=== PATIENT | female | born 1940 | race Hispanic/Latino ===

== ENCOUNTER 2016-03-24 06:08 | Inpatient (IN) | payer MEDICARE ==
--- NOTE | 2016-03-22 10:44 | Anesthesia Consultation ---
Addendum entered and electronically signed by VINCE GONZALEZ PA 03/22/16 10:46: Has surgical clearance. Original Note: Anesthesia Consult and Med Hx Date of service: 03/22/16 - Airway Anesthetic Teeth Evaluation: Edentulous ROM Head & Neck: Adequate Mental/Hyoid Distance: Adequate Mallampati Class: Class III Intubation Access Assessment: Probably Good - Pulmonary Exam CTA: Yes - Cardiac Exam Cardiac Exam: RRR - Pre-Operative Health Status ASA Pre-Surgery Classification: ASA3 Proposed Anesthetic Plan: General - Pulmonary Hx Smoking: Yes (CIGARETTES 1 PPD X 28 YRS, QUIT IN 1981) Hx Asthma: No COPD: No Hx Pneumonia: No Hx Sleep Apnea: No - Cardiovascular System Hx Hypertension: Yes (FOR 20+ YRS) Hx Coronary Artery Disease: Yes Hx Cardia Arrhythmia: Yes (sick sinus syndrome) Hx Pacemaker: Yes (PLACED IN 2003 AND 2013) Hx Heart Murmur: Yes Hx Peripheral Vascular Disease: Yes (s/p stents IN GROIN; RT ARM AND KIDNEY) - Central Nervous System CVA: Yes (TIAs) Hx Psychiatric Problems: No - Gastrointestinal Hx Ulcer: Yes (2014) Hx Gastroesophageal Reflux Disease: Yes (controlled with meds) - Endocrine Hx Renal Disease: Yes (Possible Renal artery stenosis, but does have PVD with prior stents) Hx Non-Insulin Dependent Diabetes: No Hx Thyroid Disease: Yes (no longer on replacement) - Hematic Hx Anemia: Yes - Other Systems Hx Alcohol Use: Yes (2 beers/day) Hx Cancer: No - Additional Comments Anesthesia Medical History Comments: No problems with previous anesthesias.
[2016-03-22 11:07] LABS: Basophils % (Auto) 0.3 % (0.0-1.8); Eosinophils % (Auto) 0.7 % (0.0-4.3); Hematocrit 32.3 % (30.3-42.9); Mean Corpuscular HGB Conc 34 % (30-34); Mean Corpuscular Hemoglobin 32 pg (28-32); Mean Corpuscular Volume 92 fl (79-97); Platelet Count 275 K/mm3 (140-440); Red Blood Count 3.49 M/mm3 (3.65-5.03); Red Cell Distribution Width 12.8 % (13.2-15.2); White Blood Count 4.5 K/mm3 (4.5-11.0)
[2016-03-22 11:17] LABS: INR 1.1 (0.87-1.13)
[2016-03-22 11:19] LABS: BUN/Creatinine Ratio 14.28; Calcium 8.7 mg/dL (8.4-10.2); Chloride 96.1 mmol/L (98-107); Potassium 4.9 mmol/L (3.6-5.0)
[~2016-03-24 06:08] MED LIST: NACL 0.9% 1000 ML 1,000 ML IV SCH; PEPCID PO NR; VANCOMYCIN/NS 1 GM/250 ML 250 ML IV NR
[2016-03-24] MEDS ORDERED: NACL BACTERIOSTATIC INFILTRATI ONE (06:39)
[2016-03-24] MEDS ORDERED: DIPRIVAN 10 MG/ML IV ONE (06:40)
[2016-03-24] MEDS ORDERED: DILAUDID ONE (06:42)
[2016-03-24] MEDS ORDERED: AMIDATE IV ONE (06:42)
[2016-03-24] MEDS ORDERED: NACL P/F VIAL (10 ML) 10 ML ONE (06:44)
[2016-03-24] MEDS ORDERED: ePHEDrine SULFATE ONE (06:44)
[2016-03-24] MEDS ORDERED: NACL 0.9% 1000 ML 1,000 ML ONE ×4 (06:46→16:09)
[2016-03-24] MEDS ORDERED: NEO SYNEPHRINE ONE ×2 (06:46→14:44)
[2016-03-24] MEDS ORDERED: NACL 0.9% 100 ML ONE ×2 (06:47→14:44)
[2016-03-24] MEDS ORDERED: QUELICIN ONE (06:47)
[2016-03-24] MEDS ORDERED: ZEMURON IV ONE ×2 (06:47→16:09)
[2016-03-24] MEDS ORDERED: XYLOCAINE MPF 2% ONE (06:58)
[2016-03-24] MEDS ORDERED: PEPCID PO NR (07:00)
--- NOTE | 2016-03-24 07:10 | Anesthesia Day of Surgery ---
Anesthesia Day of Surgery - Day of Surgery Patient Examined: Yes Patient H&P Reviewed: Yes Patient is NPO: Yes Cardiac Clearance: Yes
[2016-03-24] MEDS: VERSED IV NR ×2 (07:16→07:35)
[2016-03-24] MEDS ORDERED: NACL 0.9% 500 ML 500 ML IV NR (08:00)
[2016-03-24] MEDS ORDERED: DECADRON ONE (09:01)
[2016-03-24] MEDS ORDERED: MARCAINE-EPI 0.5%-1:200,000 INFILTRATI ONE (10:05)
[2016-03-24] MEDS ORDERED: NACL 0.9% IR ONE (10:05)
[2016-03-24] MEDS ORDERED: HEPARIN 10,000 UNITS/10 ML 4,000 UNIT in NACL 0.9% 1000 ML 1,000 ML IR ONE (10:06)
[2016-03-24] MEDS ORDERED: HEPARIN 10,000 UNITS/10 ML 2,000 UNIT in NACL 0.9% 500 ML 500 ML IR ONE (13:47)
[2016-03-24 14:34] LABS: Hematocrit 22.5 % (30.3-42.9); Hemoglobin 7.6 gm/dl (10.1-14.3); Mean Corpuscular HGB Conc 34 % (30-34); Mean Corpuscular Hemoglobin 32 pg (28-32); Mean Corpuscular Volume 94 fl (79-97); Platelet Count 268 K/mm3 (140-440); Red Blood Count 2.39 M/mm3 (3.65-5.03); Red Cell Distribution Width 12.8 % (13.2-15.2); White Blood Count 9.9 K/mm3 (4.5-11.0)
[2016-03-24] MEDS ORDERED: ZOFRAN IV PRN ×3 (14:53→17:16)
[2016-03-24] MEDS ORDERED: VANCOMYCIN/NS 500 MG/100 ML 100 ML IV SCH (15:00)
--- NOTE | 2016-03-24 16:03 | Admit Criteria Form ---
Admission Criteria Documentation: AMBULATORY SURGERY EXCEPTION CRITERIA Ambulatory Surgery Exception Criteria ( Place 'X' for any and all applicable criteria): Surgery or procedure performed on ambulatory basis may require inpatient stay for[A] ANY ONE of the following(1)(2)(3)(4)(5)(6)(7)(8)(9): [X] I. A preoperative situation, condition, or finding that warrants inpatient stay as indicated by ANY ONE of the following: [X] a) Inpatient care needed because of severity of a disease or condition rather than the surgery (eg, severe cardiac or respiratory disease, severe infection) (15) (16 ) (17) (18) [] b) Emergent procedure (eg, angioplasty for acute ischemia)(19) [] c) Complex surgical approach or situation as indicated by ANY ONE of the following(3): [] i) Open approach needed instead of usual endoscopic, transcatheter, or other less invasive procedure [] ii) Difficult approach because of previous operation [] iii) Airway monitoring required after open neck procedures(20)(21) [] iv) Large mass requiring unusually extensive dissection [] v) Additional complicating feature requiring inpatient care (eg, drain management)(22(23): [X] d) Major surgery in a pt with high anesthetic risk as indicated by ANY ONE of the following (2)(3)(5)(7)(8): [X] i) ASA risk class III or higher (severe systemic disease impairing function) [D] [] ii) Advanced age (eg, older than 85 years)(14)(24) [] iii) Symptomatic heart failure(25) [] iv) Symptomatic asthma or COPD(8)(21) [] v) Morbid obesity with hemodynamic or respiratory problems(20)( 21)(26)(27) [] vi) Obstructive sleep apnea(20)(21) [] vii) Former premature infants who are younger than 60 weeks [] viii) High risk for severe postoperative abnormalities (eg, severe postoperative hypocalcemia after parathyroidectomy for severe hyperparathyroidism)(27)( 28) [] ix) Unstable angina(25) [] e) Drug-related risk requiring inpatient stay as indicated by ANY ONE of the following(5)(10)(14)(32)(33) [] i) Procedure requires discontinuing drugs or other therapy (eg , antiarrhythmic medication, antiseizure medication), which necessitates inpatient observation or treatment.(18)(31) [] ii) Major surgery and high risk drug use as indicated by ANY ONE of the following: [] 1) Active abuse of cocaine or similar drug [] 2) Monoamine oxidase inhibitor use [] 3) Other drug identified as posing risk [] f) Inadequate outpatient care situation as indicated by ANY ONE of the following(5)(10)(14)(32)(33) [] i) Patient lives remote from medical facility and procedure has urgent complication potential, and temporary nearby residence cannot be arranged [] ii) Patient will have postprocedure incapacitation and inadequate assistance at home, or alternative level of care cannot be arranged. [] iii) Patient will have long general anesthesia or procedure side effect resolution time, and competent person to stay with patient on first postoperative night at home or alternative level of care cannot be arranged. []iv) Other inadequate outpatient situation that cannot be handled by other means [] II. A perioperative event, condition, or finding that warrants inpatient stay as indicated by ANY ONE of the following (1)(2)(3): [] a) Inadequate physiologic recovery: cardiovascular, respiratory, or hemodynamic status not normal or near preoperative baseline(18) [] b) Hemodynamic instability [] c) Patient not alert with near normal or baseline mental status [] d) Temperature not normal or as expected and not appropriate for outpatient treatment of condition [] e) Ambulatory or appropriate activity level status not yet achieved post procedure [E](34)(35)(36) [] f) Operative site not appropriate (eg, unexpected or excessive drainage or bleeding) [] g) Postoperative effects not resolved or adequately managed (eg, significant pain or vomiting not appropriate for outpatient or next level of care)(10)(12) [] h) Complicating features requiring inpatient care as indicated by ANY ONE of the following(37): [] i) Severe complications of procedure (eg, bowel injury, airway compromise, vascular injury,severe hemorrhage) [] ii) Extensive (eg, dissection far beyond usual scope of procedure ) or prolonged (eg, 120 minutes beyond usual) surgery needed requiring inpatient postoperative care [] iii) Conversion to an open or complex procedure that requires inpatient care (eg, open vs laparoscopic cholecystectomy, abdominal vs vaginal hysterectomy)(38) [] iv) Comorbid condition or test result identified during or post procedure that requires inpatient care (7) [] v) Malignant hyperthermia(30) [] vi) Other complicating feature requiring inpatient care(22)(23) Inpatient stay may be needed until ALL of the following are present (1)(2)(3)(4) (5)(6)(10)(14)(33)(40): []a) Physiologic recovery: cardiovascular, respiratory, and hemodynamic status normal or near preoperative baseline []b) Hemodynamic stability []c) Patient alert, with near normal or baseline mental status []d) Temperature appropriate: patient afebrile or temperature appropriate for outpt treatment of condition []e) Activity level appropriate: ambulatory or appropriate activity level post procedure []f) Operative site appropriate as indicated by ALL of the following: []i) Site dry or with expected drainage []ii) Any blood noted is as expected for procedure. []g) Postoperative effects resolved or managed as indicated by ALL of the following: []i) Pain management appropriate for outpatient (or next level of) care(10) []ii) Minimal nausea and vomiting: if present, successfully treated with oral medication(12) []iii) Headache, dizziness, or drowsiness (if present) are mild. []h) Voiding status acceptable as indicated by ANY ONE of the following: []i) Voiding spontaneously []ii) No voiding but instructions given for follow-up in 6 to 8 hours []iii) Urinary catheter in place, and instructions given for follow-up []i) Complicating features requiring inpatient care manageable at a lower level of care(37) []j) Comorbid conditions manageable at a lower level of care(37) The original [facility] content created by [employer] has been revised. The portions of the content which have been revised are identified through the use of italic text or in bold, and [facility] has neither reviewed nor approved the modified material. All other unmodified content is copyright [facility]. Please see references footnoted in the original [employer] [facility] edition 2016 Admission Criteria Met: Yes
[2016-03-24] MEDS ORDERED: HEPARIN 10,000 UNITS/10 ML ONE (16:10)
[2016-03-24] MEDS ORDERED: ROBINUL ONE (16:16)
[2016-03-24] MEDS ORDERED: BLOXIVERZ ONE (16:16)
[2016-03-24] MEDS ORDERED: ZOFRAN ONE (16:16)
--- NOTE | 2016-03-24 16:39 | Operative Report ---
Operative Report Operative Report: Date of operations: 03/24/2016 Pre-operative diagnosis: Peripheral vascular disease with ulceration and rest pain Post-operative diagnosis: The same Procedure name(s): 1. Thromboendarterectomy of the right limb of aortobifemoral bypass graft. 2. Right common femoral artery endarterectomy with a bovine pericardial patch angioplasty. 3. Right common femoral to above-knee popliteal artery bypass with reverse greater saphenous vein. 4. Completion angiogram. 5. Balloon angioplasty of the right popliteal artery using a 3 x 40 Nanocross balloon followed by 4 x 100 drug coated Lutonics balloon Surgeon: Travis Ulrich MD, RPVI Gold Layer: Deirdre Plaza DO, RUI Ramirez Anesthesia: Gen. Findings #1 significant amount of scarring in the right groin due to previously done Aortobifemoral bypass. Difficulty in dissecting the right limb of the aortobifemoral bypass and right common femoral artery. #2 heavily calcified high-grade stenosis of the right limb of aortobifemoral bypass and right common femoral artery. #3 no evidence of technical problems on the completion angiogram. #4 no evidence of anastomotic stenosis on completion angiogram with brisk flow through the entire vein graft without any technical problems. #5 high-grade mid popliteal artery stenosis not previously appreciated on preoperative angiogram. 6# complete resolution of the stenosis after balloon angioplasty. 7#palpable pulse in the popliteal artery distal to the anastomosis. Specimens: None EBL: 600 mL IV fluids: 3000 mL, 2 units of packed red blood cells Urine output: 150 mL Disposition: The recovery Dictations: Severe peripheral vascular disease with rest pain and tissue loss. Procedure: Patient was brought to the operating room and laid on the operating room table in supine position. After general endotracheal anesthesia was achieved patient was prepped and draped in usual sterile fashion. The longitudinal incision in the right groin was made using #15 blade. The subcutaneous tissue was divided with Bovie electrocautery. Large amount of scar tissue was noted in the right groin due to previous aortobifem bypass. The right limb of aortobifemoral bypass graft was carefully dissected free using a combination of Bovie electrocautery and 15 blade it was encircled with a vessel loop proximally. In the distal portion of the bypass the pulse was barely palpable. The inguinal ligament and was divided and dissection continued up the bypass limb into the retroperitoneal space until a good pulse was felt. The graft was found to be stuck to the external iliac vein and the dissection was only limited to the portion of the graft that needed to be clamped. At that level it was soft. The gastelum of the graft was also carefully dissected onto the superficial femoral artery. The profunda was identified and carefully dissected and encircled with a vessel loop. The superficial femoral artery was also encircled with a vessel loop. The incision was continued down to the thigh and the proximal greater saphenous vein was dissected free to the length of the incision. All the branches were ligated using 3-0 silk ties. The dissection continued down the leg using skip incisions to just below-knee. Once we decided that we had enough of the vein it was disconnected distally below-knee and dilated using a heparinized saline. The distal vein was tied off using 3-0 silk tie. It was disconnected at the saphenofemoral junction and the saphenofemoral junction was oversewn using 5-0 Prolene stitch. That attention was turned to the popliteal artery..The right leg was bent at the knee and externally rotated. The incision above the knee from the vein harvest was used to gain access into the popliteal space. The incision was deepened with Bovie electrocautery. The fascia was divided with Bovie electrocautery and the sartorius muscle was retracted posteriorly and the popliteal space was entered. The the popliteal artery was carefully dissected from the top. Once adequate length of the artery was exposed it was encircled with vessel loops proximally and distally. The vein was prepared. It was dilated using heparinized saline and it appeared to dilate well. The tunnel was then created using a tunneler subcutaneously in the thigh. The vein was positioned in the tunnel in the reverse fashion and 5000 units of intravenous heparin were given. The right limb of aortobifemoral bypass graft was clamped using a vascular clamp care was taken to avoid the external iliac vein. The rest of the vessels were controlled using vessel loops. 11 blade was used to create an opening in the gastelum of the graft that was extended up to the soft spot in the limb and down to superficial femoral artery using Pott scissors. The clamp was released but the inflow was very sluggish. #6 Petr balloon was used to perform an embolectomy and moderate amount of clot came out of the limb of the aortobifemoral bypass resulting in excellent inflow. The distal portion of the right limb and the common femoral artery were heavily calcified. This calcium was removed using a [place] elevator. The opening in the graft and the common femoral artery was closed using bovine pericardial patch and 5-0 Prolene running suture. Prior to completion of the suture back bleeding maneuvers were performed and were adequate. The inflow remained in excellent shape. Clamps and vessel loops were released. The distal anastomosis was created then by making an arteriotomy in the popliteal artery after vessel was occluded using vessel loops. The end of the vein was spatulated using Gudino scissors and then anastomosis was created using 6-0 Prolene running suture. Prior to completion of the anastomosis the vessel loops were released and good back bleeding was seen. It was irrigated with heparinized saline and anastomosis was completed. The leg was straightened to make sure that we had enough vein. The arteriotomy on the bovine pericardial patch was made after the vascular clamps were applied using #11 blade and Gudino scissors. The vein was spatulated. The anastomosis was created using the 6-0 Prolene running suture. Prior to completion of the anastomosis back bleeding maneuvers were performed and were good. The anastomosis was completed. The 22 gauge angiocatheter was inserted into the vein bypass and the completion angiogram was performed. There were no anastomotic issues. However, a high-grade stenosis was seen in the popliteal artery that was not apparent in the previous preoperative angiogram most likely due to poor inflow. The micropuncture wire was advanced through the Angiocath and exchanged to a micropuncture sheath. J-tip wire was used to exchange the micropuncture sheath to a 6 Hebrew short sheath. The 0.018 V 18 wire was used to cross the anastomosis and the lesion. It was predilated using a 3 x 40 Nanocross balloon. The follow up angiogram revealed increase in the lumen of the popliteal artery however there was nonflow limiting dissection. The 4 x 100 drug-coated Lutonics balloon was then advanced into the popliteal artery and inflated for 3 minutes. Post-balloon angioplasty there was no residual dissection and excellent brisk flow down the popliteal artery and two-vessel runoff anterior tibial and peroneal arteries. Patient developed palpable pulse in the popliteal artery distal to the anastomosis. There was strong triphasic Doppler signal distal to the anastomosis that would go away when the graft was pinched. The wounds were inspected for bleeding and hemostasis was adequate. The inguinal ligament was reapproximated using 2-0 Vicryl running stitch . All wounds were closed using 2-0 and 3-0 Vicryl and elma in the skin. Patient tolerated procedure well was transferred to the recovery room. At the end of the case all instrument sponge and needle counts were correct.
[2016-03-24] MEDS ORDERED: NON-FORMULARY (Ranitidine Hcl [Zantac 300 Mg Tab] 300 MG) PO PRN (16:44)
[2016-03-24] MEDS ORDERED: MORPHINE IV PRN ×2 (16:50)
[2016-03-24] MEDS ORDERED: NARCAN 0.4 MG/1 ML IV PRN (16:50)
[2016-03-24] MEDS ORDERED: NORCO 5/325 PO PRN (16:50)
--- NOTE | 2016-03-24 17:36 | Consultation ---
History of Present Illness Consult date: 03/24/16 Requesting physician: LETI HORNE History of present illness: PULMONARY/CCM CONSULT NOTE (Full dictation #) Please see dictated notes for full details Medications and Allergies Allergies Allergy/AdvReac Type Severity Reaction Status Date / Time erythromycin base Allergy Mild Itching Verified 11/25/14 16:05 [Erythromycin Base] Penicillins Allergy Mild Unknown Verified 11/25/14 16:05 amoxicillin Allergy Unknown Verified 11/25/14 16:05 duloxetine Allergy Swelling Verified 03/21/16 15:52 hydralazine Allergy Swelling Verified 03/21/16 15:52 nifedipine Allergy Swelling Verified 03/21/16 15:52 [From Nifedical XL] sucralfate Allergy Swelling Verified 03/21/16 15:52 morphine AdvReac Intermediate Vomiting Verified 11/25/14 16:05 Home Medications Medication Instructions Recorded Confirmed Last Taken Type Ranolazine ER [Ranexa ER] 500 mg PO BID 01/30/13 03/21/16 03/23/16 History cloNIDine [Catapres] 0.2 mg PO BID 05/06/14 03/21/16 03/24/16 05:15 History Rosuvastatin Calcium [Crestor] 10 mg PO QHS 08/25/14 03/21/16 03/23/16 History Clopidogrel [Plavix] 75 mg PO QDAY #30 tablet 09/01/14 03/21/16 03/15/16 Rx Amlodipine-Benazepril 5-20 mg 1 cap PO DAILY 11/25/14 03/21/16 03/24/16 05:15 History Aspirin BABY CHEW TAB 1 tab PO DAILY 11/25/14 03/21/16 03/23/16 History Dexilant 60 mg PO DAILY 11/25/14 03/21/16 03/24/16 05:15 History Geritol Complete Tablet 2 tab PO DAILY 11/25/14 03/21/16 03/23/16 History Nitroglycerin 0.4 mg SL PRN PRN 11/25/14 03/21/16 Unknown History Furosemide [Lasix] 20 mg PO QDAY 03/21/16 03/21/16 03/23/16 History Ranitidine HCl [Zantac 300 MG TAB] 300 mg PO QDAY PRN 03/21/16 03/21/16 05:15 History Active Meds: Active Medications Acetaminophen/Hydrocodone Bitart ([place] 5/325) 2 each PO Q6H PRN PRN Reason: Pain, Moderate (4-6) Clonidine HCl (Catapres) 0.2 mg PO BID [place] Clopidogrel Bisulfate (Plavix) 75 mg PO QDAY [place] Enoxaparin Sodium (Lovenox) 40 mg SUB-Q QDAY [place] Furosemide (Lasix) 20 mg PO QDAY [place] Hydromorphone HCl (Dilaudid) 0.5 mg IV Q10MIN PRN PRN Reason: Pain , Severe (7-10) Stop: 03/27/16 14:54 Sodium Chloride (Nacl 0.9% 1000 Ml) 1,000 mls @ 42 mls/hr IV DIRECT [place] Last Admin: 03/24/16 07:05 Dose: 42 mls/hr Vancomycin HCl (Vancomycin/Ns 1 Gm/250 Ml) 250 mls @ 167 mls/hr IV PREOP NR PRN Reason: Protocol Stop: 03/24/16 23:00 Last Admin: 03/24/16 07:30 Dose: 167 mls/hr Vancomycin HCl (Vancomycin/Ns 500 Mg/100 Ml) 100 mls @ 66.667 mls/hr IV INTRAOP [place] Stop: 03/24/16 23:35 Sodium Chloride (Nacl 0.9% 1000 Ml) 1,000 mls @ 75 mls/hr IV DIRECT [place] Stop: 03/25/16 08:00 Midazolam HCl (Versed) 2 mg IV PREOP NR Stop: 03/24/16 23:01 Last Admin: 03/24/16 07:35 Dose: 1 mg Miscellaneous Medication (Amlodipine-Benazepril 5-20 Mg) 1 cap PO DAILY [facility] Miscellaneous Medication (Aspirin Baby Chew Tab) 81 mg PO DAILY [place] Miscellaneous Medication (Dexilant) 60 mg PO DAILY [place] Miscellaneous Medication (Ranitidine Hcl [Zantac 300 Mg Tab]) 300 mg PO QDAY PRN PRN Reason: ACID REFLUX Miscellaneous Medication (Rosuvastatin Calcium [Crestor]) 10 mg PO QHS [place] Morphine Sulfate (Morphine) 2 mg IV Q4H PRN PRN Reason: Pain, Moderate (4-6) Morphine Sulfate (Morphine) 4 mg IV Q4H PRN PRN Reason: Pain , Severe (7-10) Naloxone HCl (Narcan 0.4 Mg/1 Ml) 0.1 mg IV Q2MIN PRN PRN Reason: Res Rate </= 8 or 02 SAT < 92% Ondansetron HCl (Zofran) 4 mg IV ONCE PRN PRN Reason: Nausea And Vomiting Stop: 03/24/16 17:17 Ondansetron HCl (Zofran) 4 mg IV Q8H PRN PRN Reason: Nausea And Vomiting Ranolazine (Ranexa Er) 500 mg PO BID [place] Physical Examination Vital signs: Vital Signs Temp Pulse Resp BP 97.0 F L 72 20 120/80 03/22/16 09:40 03/22/16 09:40 03/22/16 09:40 03/22/16 09:40 Results - Laboratory Findings CBC and BMP: 03/24/16 Unknown 03/22/16 10:00 PT/INR, D-dimer PT 14.1 Sec. (12.2-14.9) 03/22/16 10:00 INR 1.10 (0.87-1.13) 03/22/16 10:00 Abnormal lab findings: Abnormal Labs 03/22/16 03/22/16 03/22/16 10:00 10:00 10:00 RBC 3.49 L Hgb Hct RDW 12.8 L [place] % (Auto) 10.0 H Lymph # 1.1 L Activated Clotting Time Sodium 135 L Chloride 96.1 L BUN 20 H Creatinine 1.4 H Glucose 137 H POC Glucose Crossmatch See Detail 03/24/16 03/24/16 03/24/16 07:03 12:18 12:54 RBC Hgb Hct RDW [place] % (Auto) Lymph # Activated Clotting Time 255 H 209 H Sodium Chloride BUN Creatinine Glucose POC Glucose 115 H Crossmatch 03/24/16 Unknown RBC 2.39 L Hgb 7.6 L D Hct 22.5 L D RDW 12.8 L [place] % (Auto) Lymph # Activated Clotting Time Sodium Chloride BUN Creatinine Glucose POC Glucose Crossmatch
[2016-03-24 17:48] LABS: Basophils % (Auto) 0.2 % (0.0-1.8); Eosinophils % (Auto) 0.1 % (0.0-4.3); Hematocrit 29.5 % (30.3-42.9); Hemoglobin 9.7 gm/dl (10.1-14.3); Mean Corpuscular HGB Conc 33 % (30-34); Mean Corpuscular Hemoglobin 30 pg (28-32); Mean Corpuscular Volume 91 fl (79-97); Platelet Count 180 K/mm3 (140-440); Red Blood Count 3.23 M/mm3 (3.65-5.03); Red Cell Distribution Width 14.5 % (13.2-15.2); White Blood Count 14.1 K/mm3 (4.5-11.0)
[2016-03-24] MEDS: DILAUDID IV PRN ×2 (17:58→19:20)
[2016-03-24] MEDS ORDERED: HEPARIN/ 0.45% NACL-25,000 UNIT/500 ML 500 ML SHEATH SCH (18:00)
--- NOTE | 2016-03-24 18:22 | Post Anesthesia Evaluation ---
- Post Anesthesia Evaluation Patient Participated: Yes Airway Patent: Yes Stable Respiratory Function: Yes Temp > 96.8F: Yes Pain Manageable: Yes Adequeate Hydration: Yes Anesthesia Complications: No Block Receding Appropriately: Not Applicable Other Comments: intraop hgb of 7.6 treated with 2 units pRBC's. Awaiting post op H&H
[2016-03-24] MEDS ORDERED: REGLAN IV PRN (18:55)
[2016-03-24 19:29] LABS: INR 1.49 (0.87-1.13)
[2016-03-24 19:30] LABS: Partial Thromboplastin Time 59.6 Sec. (24.2-36.6)
[2016-03-24] MEDS ORDERED: DILAUDID IV PRN (21:27)
[2016-03-24] MEDS: NACL 0.9% 1000 ML 1,000 ML IV SCH (21:42)
[2016-03-24] MEDS: CATAPRES PO SCH (21:42)
[2016-03-24] MEDS: RANEXA ER PO SCH (21:51)
[2016-03-24] MEDS ORDERED: NON-FORMULARY (Rosuvastatin Calcium [Crestor] 10 MG) PO SCH (22:00)
[2016-03-25] MEDS: DILAUDID IV PRN ×2 (02:52→06:41)
[2016-03-25 05:29] LABS: Hematocrit 25.6 % (30.3-42.9); Hemoglobin 8.3 gm/dl (10.1-14.3)
[2016-03-25 05:39] LABS: BUN/Creatinine Ratio 12.66; Chloride 117.1 mmol/L (98-107); Potassium 4.6 mmol/L (3.6-5.0)
[2016-03-25 05:45] LABS: Calcium 4.9 mg/dL (8.4-10.2)
[2016-03-25] MEDS: NACL 0.9% 1000 ML 1,000 ML IV SCH (06:41)
[2016-03-25] MEDS ORDERED: ZESTRIL PO SCH (10:00)
[2016-03-25] MEDS ORDERED: NORVASC PO SCH (10:00)
[2016-03-25] MEDS ORDERED: LASIX PO SCH (10:00)
[2016-03-25] MEDS ORDERED: AMLODIPINE BENAZEPRIL PO SCH (10:00)
[2016-03-25] MEDS ORDERED: NON-FORMULARY (Aspirin Baby Chew Tab 81 MG) PO SCH (10:00)
[2016-03-25] MEDS ORDERED: BABY ASPIRIN PO SCH (10:00)
[2016-03-25] MEDS ORDERED: PEPCID PO SCH (10:00)
[2016-03-25] MEDS ORDERED: LOVENOX SUB-Q SCH (10:00)
[2016-03-25] MEDS ORDERED: DEXILANT 60 MG PO SCH (10:00)
[2016-03-25] MEDS ORDERED: PLAVIX PO SCH (10:00)
[2016-03-25] MEDS ORDERED: PROTONIX PO SCH (10:00)
[2016-03-25] MEDS: RANEXA ER PO SCH (10:35)
[2016-03-25] MEDS: CATAPRES PO SCH (10:35)
[2016-03-25] MEDS ORDERED: ADRENALIN IV ONE (11:02)
[2016-03-25] MEDS ORDERED: ADRENALIN ONE (11:02)
[2016-03-25] MEDS ORDERED: SODIUM BICARBONATE IV ONE (11:02)
[2016-03-25] MEDS ORDERED: CALCIUM CHLORIDE IV ONE (11:02)
[2016-03-25] MEDS ORDERED: NACL 0.9% 1000 ML ONE (11:44)
--- NOTE | 2016-03-25 11:55 | Event Note ---
Date: 03/25/16 Responded to the patient's room after a code blue was called. On arrival, CPR was in progress, respirations were being provided by mask ventilation. ACLS protocol was followed. See hospital code sheet for details. Initial rhythm was PEA (sinus tachycardia with no pulse). Patient was given a total of 7 mg of epinephrine. She was also given 1 amp of calcium and 1 amp of bicarb. Patient was intubated by me with an 8.0 ETT on the first attempt. There was positive color change on the end-tidal CO2. Oxygen saturation remained 100%. Tube was secured at 24 cm at the lip. Bedside ultrasound was used showing no cardiac motion. Further efforts deemed futile. Time of recorded at 1137. Patient' s primary team is at the bedside.
[2016-03-25 12:58] VITALS: BP 95/44
--- NOTE | 2016-03-25 15:46 | Event Note ---
Date: 03/25/16 Called to the ICU this morning as pt was actively being coded. We immediately proceeded to the pt's room. The ER physician was managing the code; He reported that the pt had developed a aleyda-arrhythmia. CPR was in progress. The pt was initially being bag/mask ventilated, and she was subsequently intubated. Her pillow appeared to be covered in vomitus. Once intubated dark bilious appearing fluid was suctioned from the ET tube. The pt's bandages appeared relatively clean and dry. Her leg was soft. Despite 20-30 min of resuscitative efforts, the pt never regained a pulse or cardiac function. Further care was felt to be futile. Time of was 11:37am. I spoke with the Pt's sister on the telephone, and notified her that the pt had . The pt's neighbor was at the bedside. I was given permission to speak with him by the sister. He would attempt to find the pt's son and notify him. I offered to speak to her son if he was able to find a telephone number. I would be available to answer any questions or provide further assistance as needed. I spoke to the pt's neighbor about the events leading up to the code. He stated that he had arrived between 8-9am. The pt was drowsy, but awoke to verbal stimulus by the nurse. She quickly fell back to sleep. She was able to say the neighbors name, but o/w did not communicate verbally. He reports breakfast was held given the pt's somnolence. Shortly before the code he reported, her " oxygen level" fell. Pt's son is now requesting an autopsy, which certainly seems reasonable.
== END 2016-03-25 11:40 | DRG 254 ==
LOC: 3A 06:08 → CC1 17:36
PROVIDERS: ADMIT Surgery Vascular Surgery; ATTEND Surgery Vascular Surgery
PROC: 041K09L Bypass Right Femoral Artery to Popliteal Artery with Autologous Venous Tissue, Open Approach (ICD-10-PCS; principal; 2016-03-24)
PROC: 06BP0ZZ Excision of Right Saphenous Vein, Open Approach (ICD-10-PCS; 2016-03-24)
PROC: 04CK0ZZ Extirpation of Matter from Right Femoral Artery, Open Approach (ICD-10-PCS; 2016-03-24)
PROC: 04UY0KZ Supplement Lower Artery with Nonautologous Tissue Substitute, Open Approach (ICD-10-PCS; 2016-03-24)
PROC: 047M3Z1 Dilation of Right Popliteal Artery using Drug-Coated Balloon, Percutaneous Approach (ICD-10-PCS; 2016-03-24)
PROC: 30233N1 Transfusion of Nonautologous Red Blood Cells into Peripheral Vein, Percutaneous Approach (ICD-10-PCS; 2016-03-24)
PROC: 5A12012 Performance of Cardiac Output, Single, Manual (ICD-10-PCS; 2016-03-25)
PROC: 0BH17EZ Insertion of Endotracheal Airway into Trachea, Via Natural or Artificial Opening (ICD-10-PCS; 2016-03-25)
DX: I73.9 Peripheral vascular disease, unspecified (principal); I10 Essential (primary) hypertension; I25.10 Atherosclerotic heart disease of native coronary artery without angina pectoris; K21.9 Gastro-esophageal reflux disease without esophagitis; I49.5 Sick sinus syndrome; Z95.0 Presence of cardiac pacemaker; Z86.73 Personal history of transient ischemic attack (TIA), and cerebral infarction without residual deficits; Z87.891 Personal history of nicotine dependence; Z88.0 Allergy status to penicillin; Z88.8 Allergy status to other drugs, medicaments and biological substances
CPT/HCPCS: 36415; 36620; 80048; 82962; 85014; 85018; 85025; 85027; 85347; 85520; 85610; 85730; 86850; 86900; 86901; 86920; 88304; 88311; 94760; A9270-GY; C1725; C1757; C1768; C1769; C1885; C1894; C2623; C9250; J0171; J0330; J1100; J1170; J1644; J2250; J2370; J2405; J2704; J2710; J2765; J3370; J7030; J7040; P9016; Q9966